=== PATIENT | male | born 1965 | race Caucasian/White ===

== ENCOUNTER 2022-09-05 19:31 | Outpatient (CLI) | payer BC, OTHER, SELFPAY | END 2022-09-05 19:32 | disposition home or self-care (01) | LOC: AMB 09-17 12:13 | PROVIDERS: PCP Family Medicine; Visit Provider Family Medicine | DX: S39.92XA Unspecified injury of lower back, initial encounter (principal); V09.9XXA Pedestrian injured in unspecified transport accident, initial encounter; Y92.39 Other specified sports and athletic area as the place of occurrence of the external cause | CPT/HCPCS: A0425; A0433 ==